=== PATIENT | male | born 1955 | race Caucasian/White ===

== ENCOUNTER 2018-12-22 23:37 | Inpatient (IN) | payer OTHER, MEDICAID ==
[2018-12-23 00:37] LABS: ADD UMIC YES; UR ASCORBIC ACID NEGATIVE (NEGATIVE); UR BILIRUBIN (Dip) NEGATIVE (NEGATIVE); UR BLOOD (Dip) 2+ mg/dL (NEGATIVE); UR CLARITY CLEAR (CLEAR); UR COLOR AMBER (YELLOW); UR GLUCOSE (Dip) NEGATIVE (NEGATIVE); UR KETONES (Dip) NEGATIVE (NEGATIVE); UR LEUKOCYTE ESTERASE (Dip) NEGATIVE Leu/ul (NEGATIVE); UR NITRITE (Dip) POSITIVE (NEGATIVE); UR RBC 56 /HPF (0-5); UR SPECIFIC GRAVITY (Dip) 1.008 (1.003-1.030); UR TOTAL PROTEIN (Dip) 1+ mg/dl (NEGATIVE); UR UROBILINOGEN (Dip) 2+ mg/dL (NEGATIVE); UR WBC 1 /HPF (0-5)
[2018-12-23 00:44] LABS: ADD MAN DIFF? NO
[2018-12-23 00:49] LABS: BASOPHIL # 0.1 10^3/ul (0.0-0.1); BASOPHILS % 1.1 % (0.0-2.0); EOSINOPHILS # 0.4 10^3/ul (0.0-0.5); EOSINOPHILS % 3.4 % (0.0-7.0); HEMATOCRIT 36.6 % (42.0-52.0); LYMPHOCYTES % 17.2 % (15.0-51.0); MEAN CORPUSCULAR HEMOGLOBIN 29.7 pg (29.0-33.0); MEAN CORPUSCULAR HGB CONC 32.8 g/dl (32.0-37.0); MEAN CORPUSCULAR VOLUME 90.6 fl (82.0-101.0); MEAN PLATELET VOLUME 9.1 fl (7.4-10.4); MONOCYTES % 8.5 % (0.0-11.0); NEUTROPHIL # 8.1 10^3/ul (1.6-7.5); NEUTROPHILS % 69.5 % (39.0-77.0); PLATELET COUNT 239 10^3/UL (140-415); RED BLOOD COUNT 4.04 10^6/ul (4.70-6.10); RED CELL DISTRIBUTION WIDTH 12.6 % (11.5-14.5)
[2018-12-23 00:49] LABS: WHITE BLOOD COUNT 11.6 10^3/ul (4.8-10.8)
[2018-12-23] MEDS: morphine 4 MG/ML VIAL IV ×4 (00:53→17:08)
[2018-12-23] MEDS: ONDANSETRON 4 MG INJ IV (00:53)
[2018-12-23] MEDS: SODIUM CHLORIDE 0.9% 1L BAG IV* (00:54)
[2018-12-23 01:10] LABS: ANION GAP 9 (5-13); BLOOD UREA NITROGEN 17 mg/dl (7-20); CALCIUM 9.4 mg/dl (8.4-10.2); CARBON DIOXIDE 25 mmol/L (21-31); CHLORIDE 104 mmol/L (97-110); CREATININE 2.18 mg/dl (0.61-1.24); Estimated GFR 31 mL/min (>60); GLUCOSE 102 mg/dl (70-220); POTASSIUM 4.4 mmol/L (3.5-5.1); SODIUM 138 mmol/L (135-144)
[2018-12-23 01:11] LABS: ALANINE AMINOTRANSFERASE 19 IU/L (13-69); ALBUMIN 3.9 g/dl (3.3-4.9); ALBUMIN/GLOBULIN RATIO 1.08; ALKALINE PHOSPHATASE 61 IU/L (42-121); ASPARTATE AMINO TRANSFERASE 22 IU/L (15-46); BILIRUBIN,INDIRECT 1.3 mg/dl (0-1.1); BILIRUBIN,TOTAL 1.6 mg/dl (0.2-1.3); LIPASE 111 U/L (23-300); TOTAL PROTEIN 7.5 g/dl (6.1-8.1)
[2018-12-23 01:20] LABS: INR 0.95; PARTIAL THROMBOPLASTIN TIME 24.3 Sec (23.0-35.0); PROTIME 12.8 Sec (11.9-14.9)
[2018-12-23 01:21] LABS: TROPONIN-I < 0.012 ng/ml (0.000-0.120)
[2018-12-23] MEDS: PIPER-TAZO 3.375 GM IV (PMX) 100 ML IVPB ×4 (03:25→21:46)
[2018-12-23 04:19] LABS: LACTIC ACID 1.2 mmol/L (0.5-2.0)
[2018-12-23] MEDS ORDERED: ONDANSETRON 4 MG INJ IV ×2 (04:30→06:00)
[2018-12-23] MEDS ORDERED: ACETAMINOPHEN 325 MG TAB PO (04:30)
[2018-12-23] MEDS: SOD CHLORIDE 0.9% 1,000 ML IV ×2 (06:10→16:39)
[2018-12-23 07:22] LABS: LACTIC ACID 1.3 mmol/L (0.5-2.0)
[2018-12-23] MEDS ORDERED: INSULIN ASPART [NOVOLOG] 3 ML PEN SC (08:00)
[2018-12-23] MEDS: METOPROLOL 25 MG TAB PO ×2 (09:00→20:37)
[2018-12-23] MEDS: INSULIN ASPART [NOVOLOG] 3 ML PEN SC ×4 (09:00→20:40)
[2018-12-23] MEDS: FAMOTIDINE 20 MG INJ IV ×2 (09:53→20:41)
[2018-12-23] MEDS ORDERED: GLUCOSE GEL 15 GRAM TUBE PO ×2 (13:30)
[2018-12-23] MEDS ORDERED: DEXTROSE 50% 50 ML SYRINGE IV ×2 (13:30)
[2018-12-23] MEDS ORDERED: GLUCAGON 1 MG INJ IM (13:30)
[2018-12-23] MEDS ORDERED: GLUCOSE GEL 15 GRAM TUBE BUCCAL (13:30)
[2018-12-24] MEDS: SOD CHLORIDE 0.9% 1,000 ML IV ×3 (01:41→21:19)
[2018-12-24] MEDS ORDERED: ACETAMINOPHEN 325 MG TAB (01:54)
[2018-12-24] MEDS ORDERED: ACCU-CHEK XX (02:00)
[2018-12-24] MEDS: ACETAMINOPHEN 325 MG TAB PO ×4 (02:00→21:08)
[2018-12-24 05:39] LABS: ADD MAN DIFF? NO
[2018-12-24 05:45] LABS: BASOPHIL # 0.1 10^3/ul (0.0-0.1); BASOPHILS % 1.2 % (0.0-2.0); EOSINOPHILS # 0.4 10^3/ul (0.0-0.5); EOSINOPHILS % 4.4 % (0.0-7.0); HEMATOCRIT 32.1 % (42.0-52.0); HEMOGLOBIN 10.4 g/dl (14.0-18.0); LYMPHOCYTES # 2.1 10^3/ul (0.8-2.9); LYMPHOCYTES % 21.2 % (15.0-51.0); MEAN CORPUSCULAR HEMOGLOBIN 30.1 pg (29.0-33.0); MEAN CORPUSCULAR HGB CONC 32.4 g/dl (32.0-37.0); MEAN PLATELET VOLUME 9.1 fl (7.4-10.4); MONOCYTE # 0.8 10^3/ul (0.3-0.9); MONOCYTES % 8.3 % (0.0-11.0); NEUTROPHIL # 6.4 10^3/ul (1.6-7.5); NEUTROPHILS % 64.6 % (39.0-77.0); PLATELET COUNT 195 10^3/UL (140-415); RED BLOOD COUNT 3.45 10^6/ul (4.70-6.10); RED CELL DISTRIBUTION WIDTH 12.4 % (11.5-14.5)
[2018-12-24] MEDS: PIPER-TAZO 3.375 GM IV (PMX) 100 ML IVPB ×3 (06:07→21:19)
[2018-12-24 06:16] LABS: ANION GAP 5 (5-13); BLOOD UREA NITROGEN 14 mg/dl (7-20); CALCIUM 8.6 mg/dl (8.4-10.2); CARBON DIOXIDE 25 mmol/L (21-31); CHLORIDE 107 mmol/L (97-110); CREATININE 2.32 mg/dl (0.61-1.24); Estimated GFR 29 mL/min (>60); GLUCOSE 85 mg/dl (70-220); POTASSIUM 4.4 mmol/L (3.5-5.1); SODIUM 137 mmol/L (135-144)
[2018-12-24] MEDS: INSULIN ASPART [NOVOLOG] 3 ML PEN SC ×4 (08:00→21:00)
[2018-12-24] MEDS: METOPROLOL 25 MG TAB PO ×2 (08:43→21:00)
[2018-12-24] MEDS: FAMOTIDINE 20 MG INJ IV ×2 (08:43→20:59)
[2018-12-25] MEDS: ACETAMINOPHEN 325 MG TAB PO ×2 (01:50→08:47)
[2018-12-25] MEDS: SOD CHLORIDE 0.9% 1,000 ML IV (01:50)
[2018-12-25] MEDS: PIPER-TAZO 3.375 GM IV (PMX) 100 ML IVPB (05:17)
[2018-12-25 06:10] LABS: ADD MAN DIFF? NO
[2018-12-25 06:14] LABS: BASOPHIL # 0.1 10^3/ul (0.0-0.1); BASOPHILS % 1.3 % (0.0-2.0); EOSINOPHILS # 0.5 10^3/ul (0.0-0.5); EOSINOPHILS % 5.8 % (0.0-7.0); HEMOGLOBIN 11.2 g/dl (14.0-18.0); LYMPHOCYTES # 1.8 10^3/ul (0.8-2.9); LYMPHOCYTES % 20.2 % (15.0-51.0); MEAN CORPUSCULAR VOLUME 90.7 fl (82.0-101.0); MEAN PLATELET VOLUME 9.2 fl (7.4-10.4); MONOCYTE # 0.7 10^3/ul (0.3-0.9); MONOCYTES % 7.6 % (0.0-11.0); NEUTROPHIL # 5.8 10^3/ul (1.6-7.5); NEUTROPHILS % 64.8 % (39.0-77.0); PLATELET COUNT 206 10^3/UL (140-415); RED BLOOD COUNT 3.86 10^6/ul (4.70-6.10); RED CELL DISTRIBUTION WIDTH 12.4 % (11.5-14.5)
[2018-12-25 07:08] LABS: ANION GAP 7 (5-13); BLOOD UREA NITROGEN 12 mg/dl (7-20); CALCIUM 9.1 mg/dl (8.4-10.2); CARBON DIOXIDE 26 mmol/L (21-31); CHLORIDE 107 mmol/L (97-110); CREATININE 1.97 mg/dl (0.61-1.24); Estimated GFR 35 mL/min (>60); GLUCOSE 72 mg/dl (70-220); POTASSIUM 4.4 mmol/L (3.5-5.1); SODIUM 140 mmol/L (135-144)
[2018-12-25] MEDS: INSULIN ASPART [NOVOLOG] 3 ML PEN SC ×4 (08:00→21:00)
[2018-12-25] MEDS: METOPROLOL 25 MG TAB PO ×2 (08:40→21:18)
[2018-12-25] MEDS: FAMOTIDINE 20 MG INJ IV ×2 (08:40→21:18)
[2018-12-25] MEDS: LEVOFLOXACIN 750 MG TABLET PO (12:47)
[2018-12-25] MEDS: metroNIDAZOLE 500 MG TAB PO ×2 (14:28→21:18)
[2018-12-25] MEDS: LACTOBACILLUS RHAMNOSUS CAP PO (21:18)
== END 2018-12-25 21:53 | disposition home or self-care (01) | DRG 372 ==
LOC: FTE 23:37 → PP2 12-23 04:19
DX: K35.32 Acute appendicitis with perforation, localized peritonitis, and gangrene, without abscess (principal); N17.9 Acute kidney failure, unspecified; I12.9 Hypertensive chronic kidney disease with stage 1 through stage 4 chronic kidney disease, or unspecified chronic kidney disease; E11.22 Type 2 diabetes mellitus with diabetic chronic kidney disease; N18.3 Chronic kidney disease, stage 3 (moderate); Z72.0 Tobacco use
CPT/HCPCS: 36415; 74176; 80048; 80053; 81001; 82962; 83605; 83690; 84484; 85025; 85610; 85730; 87040-91; 87086; 93005; 96374; 96375; 99285-25

== ENCOUNTER 2019-01-10 01:46 | Inpatient (IN) | payer OTHER ==
[2019-01-10 03:35] LABS: ADD MAN DIFF? NO
[2019-01-10 03:40] LABS: ADD UMIC YES; UR ASCORBIC ACID NEGATIVE (NEGATIVE); UR BILIRUBIN (Dip) NEGATIVE (NEGATIVE); UR BLOOD (Dip) 2+ mg/dL (NEGATIVE); UR CLARITY CLEAR (CLEAR); UR COLOR YELLOW (YELLOW); UR GLUCOSE (Dip) NEGATIVE (NEGATIVE); UR KETONES (Dip) NEGATIVE (NEGATIVE); UR LEUKOCYTE ESTERASE (Dip) NEGATIVE Leu/ul (NEGATIVE); UR MUCUS FEW /HPF (NONE SEEN); UR NITRITE (Dip) NEGATIVE (NEGATIVE); UR RBC 11 /HPF (0-5); UR SPECIFIC GRAVITY (Dip) 1.012 (1.003-1.030); UR TOTAL PROTEIN (Dip) NEGATIVE (NEGATIVE); UR UROBILINOGEN (Dip) NEGATIVE (NEGATIVE); UR WBC 12 /HPF (0-5)
[2019-01-10 04:02] LABS: BASOPHIL # 0.3 10^3/ul (0.0-0.1); BASOPHILS % 2.2 % (0.0-2.0); EOSINOPHILS # 0.7 10^3/ul (0.0-0.5); EOSINOPHILS % 6.1 % (0.0-7.0); HEMATOCRIT 39.8 % (42.0-52.0); HEMOGLOBIN 12.8 g/dl (14.0-18.0); LYMPHOCYTES # 2.1 10^3/ul (0.8-2.9); LYMPHOCYTES % 18.2 % (15.0-51.0); MEAN CORPUSCULAR HEMOGLOBIN 29.9 pg (29.0-33.0); MEAN CORPUSCULAR HGB CONC 32.2 g/dl (32.0-37.0); MEAN PLATELET VOLUME 9.1 fl (7.4-10.4); MONOCYTES % 8.8 % (0.0-11.0); NEUTROPHIL # 7.5 10^3/ul (1.6-7.5); NEUTROPHILS % 64.4 % (39.0-77.0); PLATELET COUNT 339 10^3/UL (140-415); RED BLOOD COUNT 4.28 10^6/ul (4.70-6.10); RED CELL DISTRIBUTION WIDTH 14.3 % (11.5-14.5)
[2019-01-10 04:02] LABS: WHITE BLOOD COUNT 11.7 10^3/ul (4.8-10.8)
[2019-01-10 04:11] LABS: ALANINE AMINOTRANSFERASE 10 IU/L (13-69); ALBUMIN 3.9 g/dl (3.3-4.9); ALBUMIN/GLOBULIN RATIO 1.02; ALKALINE PHOSPHATASE 55 IU/L (42-121); ANION GAP 9 (5-13); ASPARTATE AMINO TRANSFERASE 28 IU/L (15-46); BILIRUBIN,INDIRECT 0.5 mg/dl (0-1.1); BILIRUBIN,TOTAL 0.5 mg/dl (0.2-1.3); BLOOD UREA NITROGEN 20 mg/dl (7-20); CALCIUM 10.3 mg/dl (8.4-10.2); CARBON DIOXIDE 24 mmol/L (21-31); CHLORIDE 108 mmol/L (97-110); CREATININE 1.87 mg/dl (0.61-1.24); Estimated GFR 37 mL/min (>60); GLUCOSE 94 mg/dl (70-220); LIPASE 124 U/L (23-300); POTASSIUM 4.7 mmol/L (3.5-5.1); SODIUM 141 mmol/L (135-144); TOTAL PROTEIN 7.7 g/dl (6.1-8.1)
[2019-01-10] MEDS: SOD CHLORIDE 0.9% 1,000 ML IV (04:47)
[2019-01-10] MEDS: ONDANSETRON 4 MG INJ IV ×2 (04:47→16:30)
[2019-01-10] MEDS: morphine 4 MG/ML VIAL IV (04:47)
[2019-01-10] MEDS ORDERED: ONDANSETRON 4 MG INJ IV (08:30)
[2019-01-10] MEDS ORDERED: ACETAMINOPHEN 325 MG TAB PO (08:30)
[2019-01-10] MEDS: CEFTRIAXONE 1 GM/50 ML (PMX) 50 ML IVPB (08:50)
[2019-01-10] MEDS: metroNIDAZOLE 500 MG/NS (PMX) 100 ML IVPB (09:24)
[2019-01-10] MEDS ORDERED: GABAPENTIN 100 MG CAP PO (10:30)
[2019-01-10] MEDS: LOSARTAN 50 MG TAB PO (10:48)
[2019-01-10] MEDS: METOPROLOL 25 MG TAB PO ×2 (11:00→20:49)
[2019-01-10] MEDS ORDERED: ZOLPIDEM 5 MG TAB PO (11:00)
[2019-01-10] MEDS: morphine 2 MG INJ IV (11:32)
[2019-01-10 12:01] LABS: PROTIME 13.3 Sec (11.9-14.9)
[2019-01-10 12:02] LABS: PARTIAL THROMBOPLASTIN TIME 27.1 Sec (23.0-35.0)
[2019-01-10] MEDS: MELATONIN 5 MG TABLET PO (20:48)
[2019-01-11] MEDS: morphine 2 MG INJ IV ×2 (02:40→23:24)
[2019-01-11] MEDS: LOSARTAN 50 MG TAB PO (08:08)
[2019-01-11] MEDS: METOPROLOL 25 MG TAB PO ×2 (08:08→21:06)
[2019-01-11] MEDS: ONDANSETRON 4 MG INJ IV ×2 (15:44→20:08)
[2019-01-12] MEDS: morphine 2 MG INJ IV ×3 (07:50→21:26)
[2019-01-12] MEDS: ONDANSETRON 4 MG INJ IV ×2 (08:38→18:16)
[2019-01-12] MEDS: LOSARTAN 50 MG TAB PO (08:38)
[2019-01-12] MEDS: METOPROLOL 25 MG TAB PO ×2 (08:39→21:20)
[2019-01-13] MEDS: morphine 2 MG INJ IV ×4 (01:37→13:37)
[2019-01-13] MEDS: ONDANSETRON 4 MG INJ IV ×3 (03:59→16:35)
[2019-01-13] MEDS: LOSARTAN 50 MG TAB PO (08:02)
[2019-01-13] MEDS: METOPROLOL 25 MG TAB PO (08:03)
[2019-01-13] MEDS: LIDOCAINE 1% (MDV) 20 ML INJ (10:05)
[2019-01-13] MEDS: ONDANSETRON 4 MG INJ (10:40)
[2019-01-13] MEDS: SOD CHLORIDE 0.9% 500 ML (10:45)
[2019-01-13] MEDS: FENTAnyl 50 MCG/ML VIAL (11:04)
[2019-01-13] MEDS: MIDAZOLAM 1 MG/ML 2 ML INJ (11:04)
== END 2019-01-13 18:30 | disposition home or self-care (01) | DRG 825 ==
LOC: FTE 01:46 → 2NE 08:29
PROC: 07BH3ZX Excision of Right Inguinal Lymphatic, Percutaneous Approach, Diagnostic (ICD-10-PCS; principal; 2019-01-13)
DX: C85.15 Unspecified B-cell lymphoma, lymph nodes of inguinal region and lower limb (principal); F17.200 Nicotine dependence, unspecified, uncomplicated; N18.3 Chronic kidney disease, stage 3 (moderate); I12.9 Hypertensive chronic kidney disease with stage 1 through stage 4 chronic kidney disease, or unspecified chronic kidney disease; Z79.82 Long term (current) use of aspirin
CPT/HCPCS: 36415; 72148; 74176; 77012; 80053; 81001; 83690; 85025; 85610; 85730; 88307; 88313; 96374; 96375; 99285-25